=== PATIENT | female | born 1975 | race Caucasian/White ===

== ENCOUNTER 2017-03-08 11:15 | Day surgery (SDC) | payer BC ==
[~2017-03-08] VITALS: Ht 165.1 cm; Wt 100.1 kg
[2017-03-08] VITALS (19 sets, daily range): BP systolic 125–151; BP diastolic 57–79; PULSE 50–67; RESP 10–24; Ht 165.1 cm; Wt 100.1 kg
[~2017-03-08 11:15] MED LIST: CEFAZOLIN 2 GM/50 ML (PMX) 50 ML IVPB SCH; SOD CHLORIDE 0.9% 1,000 ML IV SCH
[2017-03-08] MEDS ORDERED: BUPIVACAINE 0.25%/EPI (SDV) 30 ML INJ ONE (11:54)
[2017-03-08] MEDS ORDERED: ONDANSETRON 4 MG INJ IV PRN ×2 (13:00→14:30)
[2017-03-08] MEDS ORDERED: ALBUTEROL 0.083% (NEB) 2.5 MG/3 ML AMP HHN ONE (13:00)
[2017-03-08] MEDS ORDERED: FENTAnyl 50 MCG/ML VIAL IV PRN ×3 (13:00)
[2017-03-08] MEDS ORDERED: HYDROmorphONE (0.2 MG/ML) 10ML SYG IV PRN ×2 (13:00)
[2017-03-08] MEDS ORDERED: MEPERIDINE 25 MG INJ IV PRN (13:00)
[2017-03-08] MEDS ORDERED: DIPHENHYDRAMINE 50 MG INJ IV PRN (13:00)
[2017-03-08] MEDS ORDERED: METOCLOPRAMIDE 10 MG INJ IV PRN (13:00)
[2017-03-08] MEDS ORDERED: FENTAnyl 50 MCG/ML VIAL ONE (13:16)
[2017-03-08] MEDS ORDERED: GLYCOPYRROLATE 0.4 MG INJ ONE (13:34)
[2017-03-08] MEDS ORDERED: SUCCINYLCHOLINE CHLORIDE 100 MG/5 ML SYG IV ONE (13:34)
[2017-03-08] MEDS ORDERED: ROCURONIUM 50 MG INJ ONE (13:34)
[2017-03-08] MEDS ORDERED: LIDOCAINE 2% (SDV) 5 ML INJ ONE (13:34)
[2017-03-08] MEDS ORDERED: ROPIVACAINE 0.5 % 30 ML VIAL ONE (13:35)
[2017-03-08] MEDS ORDERED: NEOSTIGMINE 3 MG/3 ML SYRINGE ONE (13:35)
[2017-03-08] MEDS ORDERED: CEFAZOLIN 1 GM INJ ONE (13:35)
[2017-03-08] MEDS ORDERED: PROPOFOL 20 ML ONE (13:35)
--- NOTE | 2017-03-08 14:23 | OPR ---
Date/Time of Note Date/Time of Note DATE: 03/08/17 TIME: 14:18 Operative Report Procedure Date: March 08, 2017 Preoperative Diagnosis Chronic cholecystitis/cholelithiasis Postoperative Diagnosis Chronic cholecystitis/cholelithiasis Operation Performed Laparoscopic cholecystectomy Surgeon: BREANA BRO MD Anesthesia: general Anesthesiologist: GEMMA STEPHENSON Estimated Blood Loss: minimal Specimens Gallbladder Complications: None Pt Condition Post Procedure: stable Disposition: PACU Indications The patient is a 41-year-old female who presented to the office with a 3 month history of right upper quadrant abdominal pain. The patient had clinical signs and symptoms of biliary colic and chronic cholecystitis which was confirmed via an ultrasound which showed the presence of gallstones without gallbladder wall thickening or pericholecystic fluid. The patient was scheduled for laparoscopic cholecystectomy; possible open as definitive treatment to prevent further sequelae of gallstone disease which include but are not limited to: Gangrenous cholecystitis, choledocholithiasis, gallstone pancreatitis, ascending cholangitis, etc. All risks and benefits of the procedure including but not limited to: Wound infection, excessive bleeding, common bile duct injury, postoperative biliary leak, retained common bile duct stone, injury to intra- abdominal organs, conversion to open procedure etc. were all explained to the patient in full detail. She fully understood and wished to proceed with the procedure. Informed consent was therefore obtained. Operative\Procedure Findings Changes consistent with chronic cholecystitis Procedure Description The patient was operating room and placed supine on the operating table. Bilateral sequential compression devices were placed on both lower extremities. A dose of broad-spectrum perioperative intravenous antibiotics was given. After the induction of smooth general endotracheal anesthesia the patient's abdomen was prepped and draped in the standard surgical fashion. After performance of the surgical timeout a 5 mm incision was made in the inferior umbilicus and a Veress needle was used to access the intra-abdominal cavity atraumatically. Pneumoperitoneum was then obtained and the Veress needle was exchanged for a 5 mm trocar through which a 5 mm laparoscope was placed. Three further working ports were then placed a 12 mm port in the sub-xiphoid region and two 5 mm ports in the right upper quadrant. All port sites were anesthetized with 0.25% Marcaine with epinephrine prior to incision. A contracted gallbladder was seen in the right upper quadrant. Using atraumatic graspers the gallbladder was grasped and retracted superiorly and laterally exposing the area of Gu's pouch. Dissection was begun in this area using a combination of blunt dissection and hook electrocautery. The cystic duct was identified as it entered straight into the neck of the gallbladder. It was dissected free of surrounding tissues and clipped proximally and distally x 3 and transected using EndoShears. Dissection was then continued posteriorly. The cystic artery was identified and dissected free of surrounding tissues. It too was clipped proximally and transected using EndoShears. The gallbladder was then dissected off the liver bed using electrocautery. Once completely free the gallbladder was placed in an Endo Catch bag and withdrawn through the subxiphoid port site and passed off the field as specimen. Hemostasis was then inspected for and obtained on the liver bed using hook electrocautery. The abdomen was then irrigated with several liters of warm normal saline and the irrigant returned crystal clear. Fascia of the subxiphoid port site was then reapproximated using a NeoClose, Endo Close device and 0 Vicryl sutures. Pneumoperitoneum was then released and all remaining trochars were withdrawn under direct vision. The subcutaneous tissues were irrigated with more warm normal saline. The skin was then reapproximated using 4-0 Monocryl sutures in subcuticular fashion. The incisions were cleaned and Dermabond was applied to the incisions and the patient was awoken from anesthesia and transported to the recovery room in stable condition. All counts were correct at the end of the case x 2. BREANA BRO MD March 08, 2017 14:22
[2017-03-08] MEDS ORDERED: morphine 4 MG/ML VIAL IV PRN (14:30)
[2017-03-08] MEDS ORDERED: HYDROCODONE/APAP (5/325) TAB PO PRN (14:30)
[2017-03-08] MEDS: HYDROmorphONE (0.2 MG/ML) 10ML SYG IV PRN ×5 (14:46→15:42)
[2017-03-08] MEDS: HYDROCODONE/APAP (5/325) TAB PO PRN ×2 (15:57→16:53)
== END 2017-03-08 17:55 | disposition home or self-care (01) ==
LOC: SDS 11:15
PROVIDERS: ATTEND Surgery
DX: K80.10 Calculus of gallbladder with chronic cholecystitis without obstruction (principal)
CPT/HCPCS: 47562; 84703; 88304; J0330; J0690; J1170; J2175; J2405; J2710; J2795; J3010; Z7512; Z7610; J7999